=== PATIENT | female | born 2000 | race Two or more races ===

== ENCOUNTER 2022-08-30 10:14 | Emergency (ER) | payer OTHER ==
[~2022-08-30] VITALS: Ht 162.6 cm; Wt 61.2 kg
[2022-08-30] MEDS ORDERED: PRENA1 TRUE CO1 EACH PO (10:33)
[2022-08-30] MEDS ORDERED: CONCEPT DHA CA1 EACH PO (14:46)
== END 2022-08-30 15:25 ==
LOC: ER 10:14
DX: O26.891 Other specified pregnancy related conditions, first trimester (principal); O23.41 Unspecified infection of urinary tract in pregnancy, first trimester; R10.2 Pelvic and perineal pain; N39.0 Urinary tract infection, site not specified; Z3A.01 Less than 8 weeks gestation of pregnancy

== ENCOUNTER 2023-01-14 15:03 | Outpatient (CLI) | payer OTHER ==
[~2023-01-14 15:03] MED LIST: CONCEPT DHA CA1 EACH PO; PRENA1 TRUE CO1 EACH PO
[2023-01-14] MEDS ORDERED: ECOTRIN81 MG PO (16:13)
== END 2023-01-14 16:05 | disposition home or self-care (01) ==
LOC: OBS/DEL 15:03 → LDR 15:18 → OBS/DEL 15:20
PROVIDERS: ATTEND Specialist
DX: O26.892 Other specified pregnancy related conditions, second trimester (principal); R10.2 Pelvic and perineal pain; Z3A.24 24 weeks gestation of pregnancy

== ENCOUNTER 2023-04-20 00:35 | Outpatient (CLI) | payer OTHER ==
[~2023-04-20] VITALS: Ht 160 cm; Wt 76.2 kg
[~2023-04-20 00:35] MED LIST changes: +ECOTRIN81 MG PO
[2023-04-20] MEDS ORDERED: IRON236 MG PO (00:48)
== END 2023-04-20 09:54 | disposition home or self-care (01) ==
LOC: OBS/DEL 00:35
PROVIDERS: ATTEND Specialist
DX: O26.893 Other specified pregnancy related conditions, third trimester (principal); R10.2 Pelvic and perineal pain; Z3A.38 38 weeks gestation of pregnancy

== ENCOUNTER 2023-04-23 05:51 | Inpatient (IN) | payer OTHER ==
[~2023-04-23] VITALS: Ht 160 cm; Wt 76.2 kg
[~2023-04-23 05:51] MED LIST changes: +IRON236 MG PO
[2023-04-23 07:38] LABS: PH,URINE 6.5 (5.0-8.0); URINE APPEARANCE Clear; URINE BILIRRUBIN Negative (NEGATIVE); URINE BLOOD Negative; URINE COLOR Yellow; URINE GLUCOSE Negative (NEGATIVE); URINE LEUKOCYTE Small; URINE NITRATE Negative; URINE PROTEIN Negative (NEGATIVE); URINE UROBILINOGEN 0.2 E.U./dl
[2023-04-23 07:39] LABS: URINE BACTERIA 5198.4 uL (0.0-1933); URINE RBC 9.4 uL (0.0-20.8); URINE WBC 52.8 uL (0.0-23.2)
[2023-04-23 08:02] LABS: ALBUMIN 2.8 gm/dL (3.4-5.0); BILIRUBIN TOTAL 0.39 mg/dL (0.3-1.2); CALCIUM 8.9 mg/dL (8.5-10.1); CREATININE SERUM 0.68 mg/dL (0.55-1.02); GFR 109.22; GLOBULINA 3.5 G/DL (2.4-3.5); POTASSIUM 4.08 mEq/L (3.5-5.1); TOTAL PROTEIN 6.3 gm/dL (6.4-8.2)
[2023-04-23 08:04] LABS: INR 0.94; PROTHROMBIN TIME 9.9 SECONDS (9.0-11.5)
[2023-04-23 08:13] LABS: HEMATOCRIT 31.6 % (36.0-45.00); HEMOGLOBIN 10.7 g/dL (12.0-15.00); MEAN CORPUSCULAR HGB CONC 33.7 g/dl (32.0-36.0); PLATELET COUNT 214 K/uL (150-450); RED BLOOD COUNT 3.43 M/uL (4.00-6.00)
[2023-04-24 01:02] LABS: ABG pCO2 55.3 mmHg (35-45); BASE EXCESS -10.5 mmol/l; BICARBONATE 18.8 mmol/l (23-25); SaO2 19.3 %; Tco2 20.5 mmol/l
[2023-04-24 06:50] LABS: ABG PO2 20.6 mmHg (80-100); o2 21 %
== END 2023-04-25 12:58 | disposition home or self-care (01) | DRG 807 ==
LOC: LDR 05:51 → OB/GYN 23:42
PROVIDERS: ADMIT Specialist; ATTEND Specialist
PROC: 10D07Z6 Extraction of Products of Conception, Vacuum, Via Natural or Artificial Opening (ICD-10-PCS; principal; 2023-04-23)
PROC: 0W8NXZZ Division of Female Perineum, External Approach (ICD-10-PCS; 2023-04-23)
PROC: 4A1HXCZ Monitoring of Products of Conception, Cardiac Rate, External Approach (ICD-10-PCS; 2023-04-23)
DX: O66.5 Attempted application of vacuum extractor and forceps (principal); Z37.0 Single live birth; O99.824 Streptococcus B carrier state complicating childbirth; Z3A.39 39 weeks gestation of pregnancy; Z20.822 Contact with and (suspected) exposure to COVID-19

== ENCOUNTER 2024-07-13 13:51 | Emergency (ER) | payer OTHER ==
[~2024-07-13] VITALS: Ht 160 cm; Wt 68.0 kg
[2024-07-13] MEDS ORDERED: KETOROLAC TROMETHAMINE 60 MG VIAL IM STA (15:20)
[2024-07-13] MEDS ORDERED: KETOROLAC TROMETHAMINE 60 MG VIAL IM ONE (15:39)
[2024-07-13 15:54] LABS: HEMATOCRIT 36.8 % (36.0-45.00); HEMOGLOBIN 12.2 g/dL (12.0-15.00); MEAN CORPUSCULAR HEMOGLOBIN 30.6 pg (27.00-32.0); MEAN CORPUSCULAR HGB CONC 33.2 g/dl (32.0-36.0); PLATELET COUNT 282 K/uL (150-450); RED CELL DISTRIBUTION WIDTH 14.3 % (11.5-14.5)
[2024-07-13 16:28] LABS: CREATININE SERUM 0.81 mg/dL (0.55-1.02); GFR 88.42; POTASSIUM 4.18 mEq/L (3.5-5.1)
[2024-07-13 16:42] LABS: URINE APPEARANCE Turbid; URINE BILIRRUBIN Negative (NEGATIVE); URINE BLOOD Large; URINE COLOR Yellow; URINE GLUCOSE Negative (NEGATIVE); URINE KETONE Trace (NEGATIVE); URINE LEUKOCYTE Small; URINE NITRATE Negative; URINE PROTEIN 30 (NEGATIVE)
[2024-07-13 16:46] LABS: URINE BACTERIA 2876.1 uL (0.0-1933); URINE EPITHELIAL CELLS 16.1 uL (0.0-38.8); URINE WBC 288.1 uL (0.0-23.2)
[2024-07-13 17:08] LABS: URINE CAST 0.29 uL (0.0-1.40); URINE CRYSTALS MANY /HPF
== END 2024-07-13 18:31 | disposition home or self-care (01) ==
LOC: ER 13:54
PROVIDERS: General Practice
DX: N39.0 Urinary tract infection, site not specified (principal); R10.2 Pelvic and perineal pain